=== PATIENT | male | born 1955 | race Caucasian/White ===

== ENCOUNTER 2019-04-22 08:33 | Outpatient (CLI) | payer BC ==
--- NOTE | 2019-04-22 19:51 | RAD ---
CHEST TWO VIEWS: 04/22/19 The heart is normal in size. The mediastinum appears normal. The lungs are clear. There is no vascula r congestion or edema. IMPRESSION: No acute thoracic finding. POS: HOME
== END 2019-04-22 08:34 | disposition home or self-care (01) ==
LOC: BURRAD 08:33
PROVIDERS: ATTEND Nurse Practitioner Family
DX: I10 Essential (primary) hypertension (principal)
CPT/HCPCS: 71046